=== PATIENT | female | born 1965 | race Caucasian/White ===

== ENCOUNTER 2016-05-31 11:05 | Emergency (ER) | payer OTHER ==
[2016-05-31] MEDS ORDERED: Etomidate* 2 MG/ML 10 ML VIAL IV ONE (11:18)
[2016-05-31] MEDS ORDERED: Succinylcholine* 20 MG/ML 10 ML VIAL IV ONE (11:18)
[2016-05-31] MEDS ORDERED: Propofol* 100 ML ONE ×2 (11:48→12:54)
[2016-05-31] MEDS ORDERED: Propofol* 500 MG/50 ML BTL IV SCH (12:00)
[2016-05-31] MEDS ORDERED: Midazolam concentrated* 5 MG/ML 1 ml VIAL ONE (12:01)
[2016-05-31] MEDS ORDERED: Midazolam* 1 MG/ML 5 ML VIAL (5 MG) IV ONE (12:06)
--- NOTE | 2016-05-31 12:08 | RAD ---
indication: Unresponsiveness with minor periorbital trauma. COMPARISON: None A CT scan of the brain and c-spine was performed without intravenous contrast enhancement. Contiguous axial sections were obtained from the lung apices through the vertex. BRAIN: There is hyperdense material tracking along the bilateral right frontal and temporal lobes with hyperdense material filling the basilar cistern and tracking inferiorly along the anterior margin of the brainstem. There is hyperdense material tracking along both sides of the falx cerebra I. At the midline brain at the expected location of the [place] there is a 7 x 13 mm hyperdense focus. There is a similar hyperdense focus extending into the anterior horn of the left ventricle measuring 7 x 16 mm. There is no definite mass effect or midline shift at this time. There is questionable maintenance of the jennings-white matter differentiation diffusely. The calvarium is intact. The paranasal sinuses and mastoid air cells are adequately aerated. C-SPINE: CT images of the cervical spine are of extremely limited diagnostic utility due to motion artifact. There is nonspecific straightening of the normal cervical lordosis. Likely degenerative changes are seen. The motion artifact prevents reliable evaluation of cervical spine fracture or significant spondylolisthesis. IMPRESSION: 1. 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 2. CT of the cervical spine is of very little diagnostic utility due to motion artifact. There is no definite fracture or dislocation but this imaging is unreliable. There is any clinical suspicion for C-spine fracture repeat imaging is advised. Findings were discussed with Dr. Zimmerman over the telephone at 1200 hours on May 31, 2016.
[2016-05-31 12:09] LABS: Hematocrit 35 % (35-47); Hemoglobin 10.6 g/dl (12.0-16.0); Mean Corpuscular HGB Conc 31 g/dl (31-36); Mean Corpuscular Hemoglobin 27 pg (27-31); Mean Corpuscular Volume 88 fL (80-97); Mean Platelet Volume 8 um3 (7.4-10.4); Red Blood Count 3.95 10^6/ul (4.0-5.4); Red Cell Distribution Width 21 % (10.5-15); White Blood Count 13.3 10^3/ul (3.5-10.8)
[2016-05-31 12:26] LABS: ALT 22 U/L (7-52); AST 35 U/L (13-39); Alkaline Phosphatase 97 U/L (34-104); Anion Gap 12 mmol/L (2-11); BUN/Creatinine Ratio 28.6 (8-20); Blood Urea Nitrogen 18 mg/dL (6-24); CO2 Carbon Dioxide 18 mmol/L (22-32); Calcium 8.8 mg/dL (8.6-10.3); Chloride 101 mmol/L (101-111); EGFR African American 127.6 (>60); EGFR Non-African American 99.2 (>60); Globulin 3.5 g/dL (2-4); Glucose 277 mg/dL (70-100); Potassium 3.3 mmol/L (3.5-5.0); Sodium 131 mmol/L (133-145); Total Protein 7.5 g/dL (6.4-8.9)
[2016-05-31] MEDS ORDERED: PREMIX* 0 ML ONE (12:30)
[2016-05-31 12:31] LABS: Urine Bacteria Absent (Absent); Urine Bilirubin Negative (Negative); Urine Glucose 3+(>=500 mg/dL) (Negative); Urine Nitrite Negative (Negative)
[2016-05-31 12:41] LABS: Benzodiazepine Urine Screen None Detected (None Detect)
[2016-05-31] MEDS ORDERED: Propofol* 0 MG/0 ML BTL ONE (12:50)
[2016-05-31 12:53] LABS: Alcohol < 10 mg/dL (<10)
--- NOTE | 2016-05-31 12:57 | ED ---
Reyna Sales Adam, scribed for Rick Zimmerman MD on 05/31/16 at 1143 . Altered Mental Status - HPI Summary HPI Summary: This is a level 5 caveat due to altered mental status. A 51 female presents to the ED BIBA for AMS s/p fall 2 days ago. Per EMS, son stated that she developed symptoms yesterday but did not want to be seen in the ED. - History Of Current Complaint Chief Complaint: EDAltMentalStatus Stated Complaint: POSS STROKE Time Seen by Provider: 05/31/16 11:18 Hx Obtained From: EMS Hx From Patient Unobtainable Due To: Altered Mental Status Onset/Duration: Still Present Timing: Constant, Lasting Days - Since yesterday Severity Initially: Moderate Severity Currently: Severe Character: Confusion, Agitation Aggravating Factor(s): Trauma - Fall 2 days ago Alleviating Factor(s): Nothing - Allergies/Home Medications Allergies/Adverse Reactions: Allergies Allergy/AdvReac Type Severity Reaction Status Date / Time No Known Allergies Allergy Verified 02/21/15 13:43 PMH/Surg Hx/FS Hx/Imm Hx Endocrine/Hematology History: Reports: Hx Anemia Cardiovascular History: Reports: Other Cardiovascular Problems/Disorders - bradycardia GI History: Reports: Hx Gastrointestinal Bleed, Hx Hiatal Hernia, Hx Obstructive Bowel Sensory History: Reports: Hx Contacts or Glasses Opthamlomology History: Reports: Hx Contacts or Glasses - Surgical History Surgery Procedure, Year, and Place: gastric bypass 2004. bowel resection 2006. hernia repair Infectious Disease History: Denies: Traveled Outside the [place] in Last 30 Days - Family History Known Family History: Positive: Other - Unobtainable due to AMS - Social History Alcohol Use: None Substance Use Type: Reports: None Smoking Status (MU): Former Smoker Type: Cigarettes Review of Systems - ROS Summary Review of Systems Summary: Level 5 caveat due to altered mental status Psychological: Other - Altered mental status All Other Systems Reviewed And Are Negative: No Physical Exam - Summary Physical Exam Summary: Level 5 caveat due to altered mental status. Constitutional: Well-developed, Well-nourished, (-) Distressed, Shouted "shut up" Skin: Warm, Dry HENT: Eyes: Conjunctiva normal, Blown right pupil, left pupil non reactive to light, no gag reflex Neck: Musculoskeletal ROM normal neck. (-) JVD, (-) Stridor, (-) Tracheal deviation Cardio: Rhythm regular, rate normal, Heart sounds normal; Intact distal pulses ; The pedal pulses are 2+ and symmetric. Radial pulses are 2+ and symmetric. (- ) Murmur Pulmonary/Chest wall: Effort normal. (-) Respiratory distress, (-) Wheezes, (-) Rales Abd: Soft. (-) Tenderness, (-) Distension, (-) Guarding, (-) Rebound Musculoskeletal: (-) Edema, normal muscle tone, contusion under left eye Lymph: (-) Cervical adenopathy Neuro: responds to painful stimulus, moving all 4 extremities, Right eyelid ptosis. Cranial nerves II-XII are grossly intact, no facial droop. Psych: not alert Vital Signs On Initial Exam: Initial Vitals Temp Pulse Resp BP Pulse Ox 2.7 C 111 22 141/102 100 05/31/16 11:05 05/31/16 11:05 05/31/16 11:05 05/31/16 11:05 05/31/16 11:05 Procedures - Intubation Time of Intubation: 11:45 Intubation Method: orotracheal Tube Size (cm): 7.5 Medications: Succinylcholine Breath Sounds after Intubation: equal Intubation Complications: no complications Post Intubation Xray: Yes - ET tube appears into right main stem. It will be pulled out 1 cm Diagnostics - Vital Signs Vital Signs Temp Pulse Resp BP Pulse Ox 05/31/16 11:05 2.7 C 111 22 141/102 100 - Laboratory Lab Results: Lab Results 05/31/16 05/31/16 05/31/16 Range/Units 12:02 12:02 12:02 WBC 13.3 H (3.5-10.8) 10^3/ul RBC 3.95 L (4.0-5.4) 10^6/ul Hgb 10.6 L (12.0-16.0) g/dl Hct 35 (35-47) % MCV 88 (80-97) fL MCH 27 (27-31) pg MCHC 31 (31-36) g/dl RDW 21 H (10.5-15) % Plt Count 200 (150-450) 10^3/ul MPV 8 (7.4-10.4) um3 Neut % (Auto) 90.2 H (38-83) % Lymph % (Auto) 2.9 L (25-47) % [place] % (Auto) 6.1 (1-9) % Eos % (Auto) 0 (0-6) % Baso % (Auto) 0.8 (0-2) % Absolute Neuts (auto) 12.0 H (1.5-7.7) 10^3/ul Absolute Lymphs (auto) 0.4 L (1.0-4.8) 10^3/ul Absolute Monos (auto) 0.8 (0-0.8) 10^3/ul Absolute Eos (auto) 0 (0-0.6) 10^3/ul Absolute Basos (auto) 0.1 (0-0.2) 10^3/ul Absolute Nucleated RBC 0.03 10^3/ul Nucleated RBC % 0.2 INR (Anticoag Therapy) 0.93 (0.89-1.11) Sodium 131 L (133-145) mmol/L Potassium 3.3 L (3.5-5.0) mmol/L Chloride 101 (101-111) mmol/L Carbon Dioxide 18 L (22-32) mmol/L Anion Gap 12 H (2-11) mmol/L BUN 18 (6-24) mg/dL Creatinine 0.63 (0.51-0.95) mg/dL Est GFR ( Amer) 127.6 (>60) Est GFR (Non-Af Amer) 99.2 (>60) BUN/Creatinine Ratio 28.6 H (8-20) Glucose 277 H (70-100) mg/dL Calcium 8.8 (8.6-10.3) mg/dL Total Bilirubin 1.90 H (0.2-1.0) mg/dL AST 35 (13-39) U/L ALT 22 (7-52) U/L Alkaline Phosphatase 97 (34-104) U/L Total Protein 7.5 (6.4-8.9) g/dL Albumin 4.0 (3.2-5.2) g/dL Globulin 3.5 (2-4) g/dL Albumin/Globulin Ratio 1.1 (1-3) Urine Color Urine Appearance Urine pH (5-9) Ur Specific [place] (1.010-1.030) Urine Protein (Negative) Urine Ketones (Negative) Urine Blood (Negative) Urine Nitrate (Negative) Urine Bilirubin (Negative) Urine Urobilinogen (Negative) Ur Leukocyte Esterase (Negative) Urine WBC (Auto) (Absent) Urine RBC (Auto) (Absent) Ur Squamous Epith Cells (Absent) Urine Bacteria (Absent) Hyaline Casts (Absent) Urine Glucose (Negative) Serum Alcohol < 10 (<10) mg/dL 05/31/16 Range/Units 12:18 WBC (3.5-10.8) 10^3/ul RBC (4.0-5.4) 10^6/ul Hgb (12.0-16.0) g/dl Hct (35-47) % MCV (80-97) fL MCH (27-31) pg MCHC (31-36) g/dl RDW (10.5-15) % Plt Count (150-450) 10^3/ul MPV (7.4-10.4) um3 Neut % (Auto) (38-83) % Lymph % (Auto) (25-47) % [place] % (Auto) (1-9) % Eos % (Auto) (0-6) % Baso % (Auto) (0-2) % Absolute Neuts (auto) (1.5-7.7) 10^3/ul Absolute Lymphs (auto) (1.0-4.8) 10^3/ul Absolute Monos (auto) (0-0.8) 10^3/ul Absolute Eos (auto) (0-0.6) 10^3/ul Absolute Basos (auto) (0-0.2) 10^3/ul Absolute Nucleated RBC 10^3/ul Nucleated RBC % INR (Anticoag Therapy) (0.89-1.11) Sodium (133-145) mmol/L Potassium (3.5-5.0) mmol/L Chloride (101-111) mmol/L Carbon Dioxide (22-32) mmol/L Anion Gap (2-11) mmol/L BUN (6-24) mg/dL Creatinine (0.51-0.95) mg/dL Est GFR ( Amer) (>60) Est GFR (Non-Af Amer) (>60) BUN/Creatinine Ratio (8-20) Glucose (70-100) mg/dL Calcium (8.6-10.3) mg/dL Total Bilirubin (0.2-1.0) mg/dL AST (13-39) U/L ALT (7-52) U/L Alkaline Phosphatase (34-104) U/L Total Protein (6.4-8.9) g/dL Albumin (3.2-5.2) g/dL Globulin (2-4) g/dL Albumin/Globulin Ratio (1-3) Urine Color Yellow Urine Appearance Cloudy Urine pH 5.0 (5-9) Ur Specific [place] 1.025 (1.010-1.030) Urine Protein 2+(100 mg/dl) H (Negative) Urine Ketones 1+ H (Negative) Urine Blood 2+ H (Negative) Urine Nitrate Negative (Negative) Urine Bilirubin Negative (Negative) Urine Urobilinogen Negative (Negative) Ur Leukocyte Esterase Negative (Negative) Urine WBC (Auto) Trace(0-5/hpf) (Absent) Urine RBC (Auto) 1+(3-5/hpf) H (Absent) Ur Squamous Epith Cells Present H (Absent) Urine Bacteria Absent (Absent) Hyaline Casts Present H (Absent) Urine Glucose 3+(>=500 mg/dl) H (Negative) Serum Alcohol (<10) mg/dL Result Diagrams: 05/31/16 12:02 05/31/16 12:02 Lab Statement: Any lab studies that have been ordered have been reviewed, and results considered in the medical decision making process. - CT Brain CT Interpretation: Positive (See Comments) - 1. 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 2. CT of the cervical spine is of very little diagnostic utility due to motion artifact. There is no definite fracture or dislocation but this imaging is unreliable. There is any clinical suspicion for C-spine fracture repeat imaging is advised. CT Interpretation Completed By: Radiologist Altered Mental Statu Course/Dx - Course Course Of Treatment: Conversation with one son who was not present with mother: He spoke with his younger brother who was present with mother. Younger brother told him that she was c/o headache and acting strange for several days. Today, she went stiff, fell off couch, and was drooling. This was when he called EMS. Dr. Louis personally arranged transfer to his partner Dr. Leong - Diagnoses Discharge Diagnoses: Subarachnoid hemorrhage, SUBARACHNOID HEMORRHAGE,ANEURYSM RUPTURE, Cerebral aneurysm rupture - Provider Notifications Discussed Care Of Patient With: Dr. King (Neurosurgery, 12:30) - He personally evaluated patient and recommends Mannitol. - Critical Care Time Critical Care Time: 75-104 min - 120 minutes Discharge - Discharge Plan Condition: Critical Disposition: TRANS HIGHER LVL OF CARE FAC Discharge Disposition Comment: Patient needs neurovascular surgery and will be transferred to [place] Referrals: Yessica Parada MD [Primary Care Provider] - The documentation as recorded by the Reyna ramírez Adam accurately reflects the service I personally performed and the decisions made by , Rick Zimmerman MD.
[2016-05-31] MEDS ORDERED: MANNITOL IV ONE (13:00)
--- NOTE | 2016-05-31 13:00 | RAD ---
INDICATION: Unresponsiveness COMPARISON: None. TECHNIQUE: Single AP portable view of the chest was obtained. FINDINGS: Image quality is compromised due to the relative inferiority of a portable chest x-ray. There has been interval placement of an appropriately positioned gastric tube and endotracheal tube with the tip that appears to terminate at the level of the vonnie. The heart and mediastinum exhibit normal size and contour. The lungs are grossly clear. There is no evidence of a large pleural effusion. Visualized bones are normal for the patient's age. IMPRESSION: Interval placement of an appropriately positioned gastric tube and endotracheal tube that terminates at the level of the vonnie. Particularly if inadequate oxygenation is observed clinically, recommendation is to retract the endotracheal tube approximately 3 cm.
[2016-05-31 13:18] VITALS: BP 149/99
== END 2016-05-31 13:11 | disposition short-term general hospital (02) ==
LOC: ED 11:05
DX: I60.7 Nontraumatic subarachnoid hemorrhage from unspecified intracranial artery (principal); Z87.891 Personal history of nicotine dependence; D64.9 Anemia, unspecified
CPT/HCPCS: 31500; 36415; 70450; 71010; 72125; 80053; 80307; 80320; 81003; 81015; 83605; 85025; 85610; 94002; 96374; 96375; 99285; G0480; J0330; J2150; J2250; J2704